=== PATIENT | female | born 1990 | race Caucasian/White ===

== ENCOUNTER 2016-12-31 13:55 | Inpatient (IN) | payer OTHER ==
[~2016-12-31] VITALS: Ht 182.9 cm; Wt 103.0 kg
--- NOTE | 2016-12-31 13:57 | NUR ---
PT ARRIVED VIA AMB FROM HOME FOR WITNESSED CARDIOPULMONARY ARREST BY FATHER IMMEDIATELY POST SEIZURE EPISODE. PT HAS NO HX OF SEIZURES. COMPRESSIONS WERE STARTED IMMED BY FATHER AND CONTINUED BY EMS UPON THEIR ARRIVAL. PT ARRIVED TO ED WITH AIRWAY SUPPORTED BY BVM. PT WAS TRANSFERRED TO ED [facility] AND BVM CONT BY RT BENITSE.
--- NOTE | 2016-12-31 14:03 | NUR ---
1L LESLI AKERS INFUSING TO L LEG I.O. BY John VALENCIA RN
--- NOTE | 2016-12-31 14:06 | NUR ---
LEVOPHED INFUSION BEGAN AT 2MCG/MIN
--- NOTE | 2016-12-31 14:13 | NUR ---
TITRATED NOREPI TO 4MCG/MIN
[2016-12-31 14:15] VITALS: BP 85/45
[2016-12-31 14:20] LABS: BASOPHIL % 0.3 % (0-2); PLATELET COUNT 279 x10^3mcL (130-400); RED CELL DISTRIBUTION WIDTH 14.1 % (11.5-14.5)
[2016-12-31 14:40] LABS: CALCIUM 7.9 mg/dL (8.5-10.1); CARBON DIOXIDE 19.5 mmol/L (21-32); CREATININE SERUM 1.2 mg/dL (0.6-1.0); POTASSIUM SERUM 3.9 mmol/L (3.5-5.1)
--- NOTE | 2016-12-31 14:43 | NUR ---
DIPRIVAN STARTED AT 5MCG/KG/MIN FOR SEDATION
[2016-12-31 14:45] LABS: BILIRUBIN TOTAL 0.5 mg/dL (0.20-1.00); TOTAL PROTEIN, SERUM 6.8 g/dL (6.4-8.2)
[2016-12-31 15:03] LABS: T3 TOTAL 1.2 ng/mL
[2016-12-31 15:10] LABS: PHOSPHOROUS 6.9 mg/dL (2.5-4.9)
[2016-12-31 15:12] LABS: CHOLESTEROL/HDL RATIO 4.2
--- NOTE | 2016-12-31 15:20 | NUR ---
DIPRIVAN INCR TO 20MCG/KG. PT MOVING ALL EXTREMITIES AND ATTEMPTED TO REACH FOR ET TUBE. PT SUCTIONED-CLEAR MUCUS NOTED TO SUCTION TUBING CANISTER.
--- NOTE | 2016-12-31 15:21 | NUR ---
PT HAD BM X 2 WITH URINARY INCONTINENCE. PT CLEANED AND NEW LINENS GIVEN.
--- NOTE | 2016-12-31 15:24 | NUR ---
RT KAMARI AT BEDSIDE FOR VENTILATION MONITOR ALARMING "HIGH PRESSURE." PT CURRENTLY STILL ON DIPRIVAN 20MCG/KG AND STILL MOVING ALL EXTREMITIES
[2016-12-31 15:39] LABS: UA SPECIFIC GRAVITY 1.025 (1.005-1.035); microscopic required? YES; urine erythrocyte 2+ (NEGATIVE)
[2016-12-31 15:41] LABS: FREE T4 1.06 ng/dL (0.76-1.46); FREE THYROXINE INDEX 3.7 ug/dL (1.4-4.5); T4(THYROXINE) 10.3 ug/dL (4.7-13.3)
--- NOTE | 2016-12-31 15:43 | NUR ---
INFORMATION SYSTEMS SPECIALIST PATRICIA AT BEDSIDE. LEVOPHED STARTED BY PATRICIA ROSARIO AT 4MCG/MIN FOR LOW BP. DIPRIVAN NOW AT 35MCG/KG
[2016-12-31 15:47] LABS: AMPHETAMINE QUAL UR NONE DETECTED (NEG <=1000)
--- NOTE | 2016-12-31 15:47 | NUR ---
PATRICIA STAVE LOG CUT OFF SAW OPERATOR RECEIVED REPORT
--- NOTE | 2016-12-31 16:17 | NUR ---
PT ARRIVED ON UNIT FROM ED ON GURNEY ACCOMPANIED BY RN AND RT. PT IS SEDATED ON PROPOFOL @ 35 MCG/KG/MIN TO MRSS = 5. PT WITHDRAWS TO PAINFUL STIMULI. DOES NOT FOLLOW COMMANDS. GAG REFLEX NOTED. PUPILS ARE 4MM BRISK BILATERALLY. SIZE 7.5 ETT INTACT AND SECURED, 24 @ LL. VCV/AC: RATE 14, TV 500, PEEP 5, FIO2 100%. PT NOTED TO BE HAVING LABORED BREATHING, RR = 36. LUNG SOUNDS ARE COARSE THROUGHOUT. HEART SOUNDS DISTANT. SINUS TACH, HR = 166. PT ON LEVOPHED @ 4 MCG/MIN. PULSES ARE THREADY X4, DOPPLER REQUIRED TO ASSESS. SKIN IS COOL AND PALE. CAP REFILL > 3 S. L HAND IV INTACT AND PATENT. LLE IO INTACT, PATENT. SKIN IS INTACT. ABD IS FIRM AND DISTENDED, BOWEL SOUNDS HYPOACTIVE X4Q. BRYANT INTACT AND DRAINING VIA GRAVITY, POOR OUTPUT. BED LOW, SIDE RAILS UP X3, CALL LIGHT IN REACH. WILL CONTINUE TO MONITOR.
[2016-12-31 16:30] VITALS: BP 103/64
--- NOTE | 2016-12-31 16:30 | NUR ---
VENTILATOR NOTED TO CONTINUOUSLY ALARM HIGH PRESSURE LIMITS, SPOKE WITH DR. KLEIN REGARDING VENTILATOR SETTINGS, NEW ORDER PRESSURE CONTROL 18 CMH2O, RR 14 BREATHS/MIN, PEEP +10, AND FIO2 100%.
--- NOTE | 2016-12-31 17:00 | NUR ---
TITRATED LEVOPHED TO 6 MCG/MIN, BP = 66/43 (57).
--- NOTE | 2016-12-31 17:00 | NUR ---
22 GA IV PLACED TO L AC. IV PATENT, BLOOD RETURN PRESENT, DRESSING CDI.
--- NOTE | 2016-12-31 17:05 | NUR ---
L HAND IV D/C'D D/T INFILTRATING.
--- NOTE | 2016-12-31 17:07 | NUR ---
AMIODARONE LOADING BOLUS STARTED AT THIS TIME.
--- NOTE | 2016-12-31 17:15 | NUR ---
TITRATED LEVOPHED TO 8 MCG/MIN, BP = 78/46(54).
--- NOTE | 2016-12-31 17:18 | NUR ---
AMIODARONE DRIP STARTED @ 1 MG/MIN AT THIS TIME.
--- NOTE | 2016-12-31 17:20 | NUR ---
AT BEDSIDE SPEAKING TO PT MOM AND DAD. OBTAINED CONSENT FOR CENTRAL LINE INSERTION AT THIS TIME, BOTH VERBALIZE UNDERSTANDING RISKS AND BENEFITS. SEE CHART FOR DETAILS.
--- NOTE | 2016-12-31 17:30 | NUR ---
DR KLEIN AND US TECH AT BEDSIDE TO PERFORM CENTRAL LINE PLACEMENT, TIME OUT DONE.
--- NOTE | 2016-12-31 17:30 | NUR ---
TITRATED LEVOPHED TO 10 MCG/MIN, BP =83/32(50).
--- NOTE | 2016-12-31 17:36 | NUR ---
REPORT GIVEN TO EVGENY RN. ALL CARE ENDORSED.
[2016-12-31 17:55] VITALS: BP 115/79
--- NOTE | 2016-12-31 17:59 | NUR ---
NIBP 69/52 MAP 56 HR 133, LEVOPHED TITRATED TO 16 MCG/MIN. WILL CONT TO MONITOR AND TITRATE NEEDED.
[2016-12-31 18:00] VITALS: BP 69/52
--- NOTE | 2016-12-31 18:05 | NUR ---
NIBP 66/44 MAP 53 HR 133, LEVOPHED TITRATED TO 20 MCG/MIN. IVF NS TITRATED TO 150 ML/HR PER DR. KLEIN ORDERS. WILL CONT TO MONITOR AND TITRATE NEEDED.
--- NOTE | 2016-12-31 18:15 | NUR ---
NIBP 66/40 MAP 50 LEVOPHED TITRATED TO 25 MCG/MIN. WILL CONT TO MONITOR
--- NOTE | 2016-12-31 18:30 | NUR ---
ALVARO TITRATED TO 100 MCG/MIN, BP = 73/50(56).
--- NOTE | 2016-12-31 18:40 | NUR ---
AVLARO INITIATED @ 50 MCG/MIN. BP = 71/51 MAP = 57.
--- NOTE | 2016-12-31 18:45 | NUR ---
ALVARO TITRATED TO 150 MCG/MIN, BP = 63/49(56).
--- NOTE | 2016-12-31 18:45 | NUR ---
ALVARO TITRATED TO 100 MCG/MIN, BP = 73/50(56).
--- NOTE | 2016-12-31 18:55 | NUR ---
ALVARO TITRATED TO 150 MCG/MIN, BP = 63/49(56).
--- NOTE | 2016-12-31 19:05 | NUR ---
ALVARO TITRATED TO 200 MCG/MIN, MAP < 60.
--- NOTE | 2016-12-31 19:06 | NUR ---
REPORT GIVEN TO JAZ ROSARIO. ALL CARE ENDORSED.
--- NOTE | 2016-12-31 19:06 | NUR ---
PT IS INTUBATED AND SEDATED ON MORPHINE @ 1 MG/HR AND VERSED @ 1 MG/HR TO MRSS = 5. PT WITHDRAWS TO PAINFUL STIMULI. UNABLE TO FOLLOW COMMANDS AT THIS TIME. SIZE 7.5 ETT INTACT AND SECURED, 24 @ LL. PCV: RATE 14, IP 18, PEEP 10, FIO2 100%. PT IS BREATHING E/U. LUNG SOUNDS ARE COARSE THROUGHOUT. R IJ CVC INTACT AND SECURED, DRESSING CDI. L AC IV INTACT, PATENT, DRESSING CDI. LEVOPHED INFUSING @ 30 MCG/MIN, NEOSYNEPHRINE @ 200 MCG/MIN, AMIODARONE @ 1 MG/MIN. 1L NS BOLUS INFUSING AT THIS TIME. LLE I/O INTACT AND SECURED, PATENT, SITE IS CLEAN AND DRY. NO EDEMA NOTED AT THIS TIME. BRYANT INTACT AND DRAINING VIA GRAVITY, POOR OUTPUT. NO S/SX OF PAIN AT THIS TIME. BED LOW, SIDE RAILS UP X3, CALL LIGHT IN REACH. WILL CONTINUE TO MONITOR.
--- NOTE | 2016-12-31 19:30 | NUR ---
PT IS INTUBATED AND SEDATED. MORPHINE DRIP 1 MG/HR AND VERSED DRIP 1 MG/HR. PT IN UNRESPONSIVE, UNABLE TO FOLLOW COMMANDS, UNABLE TO MAKE NEEDS KNOWN. PUPILS OD 3/SLUGGISH, OS 4/SLUGGISH. OGT IN PLACE AND SECURED. LAC IV [address] AND PATENT. RIJ IV IN PLACE AND SECURED, DRESSING CDI, ALL PORTS PATENT AND INFUSING WELL. NS AT 150 ML/HR. AMIODARONE DRIP 1 MG/MIN. LEVOPHED DRIP 30 MCG/MIN. NEOSYNEPHERINE DRIP 300 MCG/MIN. ETT IN PLACE AND SECURED, ATTACHED TO VENT, 7.5 ETT/24 LL. VENT SETTINGS: PC MODE, FIO2 100%, RATE 18, PRESSURE 18, PEEP 10. RHONCHI HEARD TO BILAT UPPER LOBES AND DIMINISHED LUNG SOUNDS TO BILAT BASES OF LOBES. NO SECRETIONS NOTED UPON SUCTIONING, NO GAG REFLEX NOTED. CHEST RISE IS EQUAL AND SYMMETRICAL. ABD IS ROUND AND SOFT. HYPOACTIVE BOWEL SOUNDS X4 QUADRANTS. BRYANT CATHETER IN PLACE, CLEAN AND PATENT, DRAINING YELLOW URINE. SKIN IS COOL AND DRY. NO SKIN TEARS NOTED. WEAK PULSES TO BUE AND BLE. CAP REFILL >3. BP 71/48, MAP 54, HR 127, O2 97%, TEMP 98.9. NO S/S OF PAIN NOTED. WILL CONTINUE TO MONITOR FOR ANY ACUTE CHANGES.
--- NOTE | 2016-12-31 19:45 | NUR ---
DR MORGAN, DR KLEIN AT BEDSIDE FOR ARTERIAL LINE INSERTION.
--- NOTE | 2016-12-31 20:00 | NUR ---
ARTERIAL LINE SUCCESSFUL. HR DROPPED TO 56 AND PT DESATTNG- 42%. DR MORGAN MADE AWARE. BP 80/62, MAP 69. PT IS BEING MANUALLY BAGGED.
--- NOTE | 2016-12-31 20:15 | NUR ---
FAMILY AT BEDSIDE WITH DR MORGAN AND DR KLEIN. CODE STATUS DISCUSSED, FAMILY WISHES TO KEEP PT FULL CODE. WILL CONTINUE TO MONITOR FOR ANY ACUTE CHANGES.
--- NOTE | 2016-12-31 20:20 | NUR ---
HYPOTHERMIA PROTOCOL D/C AT THIS TIME PER DR MORGAN. SEDATION TURNED OFF AT THIS TIME WELL. WILL CONTINUE TO MONITOR FOR ANY ACUTE CHANGES.
--- NOTE | 2016-12-31 20:32 | NUR ---
ETT REATTACHED TO VENT. VENT SETTINGS: PC MODE, RATE 18, PRESSURE 18, FIO2 100%, PEEP 10. WILL CONTINUE TO MONITOR FOR ANY ACUTE CHANGES.
[2016-12-31] MEDS ORDERED: DEPL PO (21:15)
[2016-12-31] MEDS ORDERED: [UNRECOGNIZED DRUG - CODE] PO (21:15)
--- NOTE | 2016-12-31 21:26 | NUR ---
ART LINE 91/41 (57). [facility] INITIATED AT 0.01 UNITS/MIN PER ORDER. WILL CONTINUE TO MONITOR FOR ANY ACUTE CHANGES.
[2016-12-31 21:40] VITALS: BP 64/51
[2016-12-31 22:23] LABS: RED CELL DISTRIBUTION WIDTH 14.3 % (11.5-14.5)
[2016-12-31 22:29] LABS: PLATELET COUNT 119 x10^3mcL (130-400)
[2016-12-31 22:32] LABS: CALCIUM 6.5 mg/dL (8.5-10.1); CARBON DIOXIDE 13.3 mmol/L (21-32); CREATININE SERUM 1.9 mg/dL (0.6-1.0)
--- NOTE | 2016-12-31 22:34 | NUR ---
PLACED PHONE CALL TO [facility]. SPOKE WITH EFRA. [facility] REFERENCE NUMBER: [id number]. INFORMED THAT A [facility] REPERSENTATIVE WOULD MAKE A VISIT TO HOSP OVERNIGHT OR IN THE AM.
[2016-12-31 22:42] LABS: BAND NEUTROPHIL 10 % (0-10); SEGMENTED NEUTROPHILS 80 % (37-75); rbc morphology (normal/abnorm) NORMAL (NORMAL)
[2016-12-31 22:43] LABS: PLATELET MORPHOLOGY PLATELETS DECREASED
--- NOTE | 2016-12-31 23:31 | NUR ---
PT IS MOVING LEGS AND IS RAISING ARMS. SEDATION TURNED ON AT THIS TIME. MORPHINE 1 MG/HR AND VERSED 1 MG/HR. WILL CONTINUE TO MONITOR FOR ANY ACUTE CHANGES.
[2016-12-31 23:38] VITALS: BP 111/58
--- NOTE | 2016-12-31 23:40 | NUR ---
ART LINE 111/58 (75). [facility] TURNED OFF AT THIS TIME. WILL CONTINUE TO MONITOR FOR ANY ACUTE CHANGES.
[2017-01-01] VITALS (17 sets, daily range): BP systolic 95–125; BP diastolic 48–70
--- NOTE | 2017-01-01 01:33 | NUR ---
PT IS LYING IN BED WITH FAMILY MEMBERS AT BEDSIDE. ART LINE BP 117/69, MAP 84, HR 117, O2 97%, TEMP 98.2. NO S/S OF PAIN NOTED. WILL CONTINUE TO MONITOR FOR ANY ACUTE CHANGES.
--- NOTE | 2017-01-01 04:06 | NUR ---
CALLED [facility] TO OBTAIN HEAD CT OF PT. [facility] STATED THEY WOULD CALL ME BACK WITH AN ESTIMATED TIME THE CT CAN BE TAKEN.
--- NOTE | 2017-01-01 05:05 | NUR ---
PT TRANSFERRED TO CT ROOM.
[2017-01-01 05:16] LABS: BASOPHIL % 0.2 % (0-2); RED CELL DISTRIBUTION WIDTH 14.3 % (11.5-14.5)
[2017-01-01 05:20] LABS: PLATELET COUNT 111 x10^3mcL (130-400)
--- NOTE | 2017-01-01 05:28 | NUR ---
PT RETURNED FROM CT. NO S/S OF PAIN NOTED. WILL CONTINUE TO MONITOR FOR ANY ACUTE CHANGES.
[2017-01-01 05:29] LABS: CALCIUM 6.3 mg/dL (8.5-10.1); CARBON DIOXIDE 18.3 mmol/L (21-32); CREATININE SERUM 2.1 mg/dL (0.6-1.0); PHOSPHOROUS 7.3 mg/dL (2.5-4.9); POTASSIUM SERUM 3.7 mmol/L (3.5-5.1)
--- NOTE | 2017-01-01 05:55 | NUR ---
PT GIVEN FULL BED BATH. NEW LINENS PROVIDED. NO BM NOTED. PT REPOSITONED. WILL CONTINUE TO MONITOR FOR ANY ACUTE CHANGES.
--- NOTE | 2017-01-01 06:21 | NUR ---
JULIO CESAR STACY AT BEDSIDE. FIO2 CHANGED TO 80%. WILL CONTINUE TO MONITOR FOR ANY ACUTE CHANGES.
--- NOTE | 2017-01-01 06:53 | NUR ---
SPOKE TO DR MORGAN VIA PHONE CALL. UPDATES PROVIDED. DR MORGAN TO SEE PT. WILL CONTINUE TO MONITOR FOR ANY ACUTE CHANGES.
--- NOTE | 2017-01-01 07:17 | NUR ---
REPORT GIVEN TO PATRICIA ROSARIO. UPDATES PROVIDED. ENDORSED PT CARE.
--- NOTE | 2017-01-01 07:30 | NUR ---
PT IS INTUBATED AND SEDATED ON MORPHINE @ 2MG/HR AND VERSED @ 2MG/HR TO MRSS = 4. PT RESPONDS TO TACTILE STIMULI. PT DOES NOT FOLLOW COMMANDS AT THIS TIME, BUT WAS NOTED TO ANSWER QUESTIONS DURING THE NIGHT. PUPILS ARE 2MM SLUGGISH BILATERALLY. SIZE 7.5 ETT INTACT AND SECURED, 26 @ LL. SIZE 7.5 ETT INTACT AND SECURED, 26 @ LL. PCV: RATE 14, IP 10, PEEP 18, FIO2 80%. PT IS BREATHING E/U. LUNG SOUNDS ARE COARSE THROUGHOUT. NO SECRETIONS FROM ETT AT THIS TIME. HEART SOUNDS DISTANT. SINUS TACH, HR = 122. LEVOPHED INFUSING @ 30 MCG/MIN, NEOSYNEPHRINE @ 150 MCG/MIN, AMIODARONE @ 0.5 MG/MIN. R IJ CVC INTACT, PORTS PATENT, DRESSING CDI. NS INFUSING @ 50 CC/HR. PULSES ARE WEAK X4. CAP REFILL < 3 S. SKIN IS WARM AND PALE. TRACE EDEMA NOTED TO BUE AND BLE. ABD IS SOFT AND ROUNDED. BOWEL SOUNDS HYPOACTIVE X4Q. BRYANT INTACT AND DRAINING VIA GRAVITY. URINE IS RUDY, POOR OUTPUT. NO S/SX OF PAIN AT THIS TIME. HOB ELEVATED, BED LOW, SIDE RAILS UP X3, CALL LIGHT IN REACH. WILL CONTINUE TO MONITOR.
--- NOTE | 2017-01-01 08:20 | NUR ---
TITRATED FIO2 TO 70%.
--- NOTE | 2017-01-01 10:05 | NUR ---
TITRATED FIO2 TO 60%.
--- NOTE | 2017-01-01 11:15 | NUR ---
DR ANNE AT BEDSIDE TO ASSESS PT. DR ANNE DISCUSSED PT'S PROGNOSIS, ECHO CARDIOGRAM RESULT, AND POC WITH PT'S MOTHER, ARA. QUESTIONS AND CONCERNS ADDRESSED.
--- NOTE | 2017-01-01 11:26 | NUR ---
DR. GONZÁLES, RESIDENTS, INTEGRATION ASSISTANT AND PRIMARY RN AT BEDSIDE FOR MORNING ROUNDS. PLAN OF CARE DISCUSSED WITH PT'S MOTHER, WILL CONT TO MONITOR.
--- NOTE | 2017-01-01 11:55 | NUR ---
TITRATED FIO2 TO 50%.
--- NOTE | 2017-01-01 14:55 | NUR ---
DR. MORGAN AT BED SIDE, PT PLACED ON VOLUME CONTROL WITH PREVIOUS ORDERED SETTINGS OF AC 14, VT 500 MLs, PEEP +5 CMH2O, AND FIO2 50%. ABG TO FOLLOW POST VENTILATOR SETTINGS CHANGES.
--- NOTE | 2017-01-01 15:02 | NUR ---
DR MORGAN AT BEDSIDE TO ASSESS PT. DR MORGAN DISCUSSED PT'S STATUS WITH PT'S FAMILY AT BEDSIDE AND POC AT [facility] TIME. ORDERS RECEIVED, SEE EMAR.
--- NOTE | 2017-01-01 15:12 | NUR ---
ECHO COMPLETED AT 9:00 AM
--- NOTE | 2017-01-01 16:05 | NUR ---
TITRATED FIO2 TO 40%.
--- NOTE | 2017-01-01 17:45 | NUR ---
TITRATED FIO2 TO 30%.
--- NOTE | 2017-01-01 19:15 | NUR ---
REPORT RECEIVED FROM PATRICIA ROSARIO TO ASSUME CARE. PT LYINING IN BED WITH HOB ELEVATED. ETT/OGT PRESENT AND SECURE. PT VENTILATED ON AC/VC MODE, Vt 500, FIO2 30%, RATE 14 AND PEEP 5. RIJ PRESENT/SECURE AND INFUSING MORPHINE 2 MG/HR, VERSED 2 MG/HR, AMIODARONE 0.5 MG/MIN, LEVOPHED 30 MCG/MIN, NEOSYNEPHRINE 125 MCG/MIN AND NS 50 ML/HR. RIGHT FEMORAL LINE PRESENT/SECURE. BRYANT CATHETER DRAINING TO GRAVITY. CALL LIGHT WITHIN REACH. MOTHER AT BEDSIDE. WILL PERFORM ASSESMENT SHORTLY. WILL CONTINUE TO MONITOR.
--- NOTE | 2017-01-01 19:24 | NUR ---
PT IS INTUBATED AND SEDATED ON VERSED @ 2 MG/HR AND MORPHINE @ 2 MG/HR. ETT AND OGT INTACT AND SECURED. R IJ CVC INTACT, PORTS PATENT, DRESSING CDI. ETT TO VENT, VCV/AC: RATE 14, TV 500, PEEP 5, FIO2 30%. PT IS BREATHING E/U. LEVO @ 30 MCG/MIN, ALVARO @ 125 MCG/MIN, AMIODARONE @ 0.5MG/HR, NS @ 50 CC/HR. BRYANT INTACT AND DRAINING TO GRAVITY. NO DISTRESS NOTED.
--- NOTE | 2017-01-01 19:25 | NUR ---
REPORT GIVEN TO NATALIE ROSARIO. ALL CARE ENDORSED.
--- NOTE | 2017-01-01 20:36 | NUR ---
Dr. Nuno, made aware of platelets trending down, Heparin SQ not given.
[2017-01-02] VITALS (17 sets, daily range): BP systolic 92–131; BP diastolic 43–64; Ht 182.9 cm; Wt 103.0 kg
--- NOTE | 2017-01-02 00:25 | NUR ---
NEOSYNEPHRINE TITRATED TO 100 MCG/MIN. ARTERIAL BP 125/59, MAP 78. WILL CONTINUE TO MONITOR.
--- NOTE | 2017-01-02 02:10 | NUR ---
NEOSYNEPHRINE TITRATED TO 75 MCG/MIN. BP 120/57, MAP 74. WILL CONTINUE TO MONITOR.
--- NOTE | 2017-01-02 03:43 | NUR ---
CARMEN RT AT BEDSIDE TO ADMINSTER BREATHING TX. WILL CONTINUE TO MONITOR.
--- NOTE | 2017-01-02 04:03 | NUR ---
TITRATED VERSED 3 MG/HR. VENT HIGH PRESSURE AND LOW VOLUME, PT ALSO MOVING ARMS AROUND. WILL CONTINUE TO MONITOR.
--- NOTE | 2017-01-02 04:20 | NUR ---
NEOSYNEPHRINE TITRATED TO 100 MCG/MIN, MAP 56. WILL CONTINUE TO MONITOR.
[2017-01-02 05:41] LABS: BASOPHIL % 0.1 % (0-2); RED CELL DISTRIBUTION WIDTH 13.9 % (11.5-14.5)
[2017-01-02 05:43] LABS: PLATELET COUNT 108 x10^3mcL (130-400)
--- NOTE | 2017-01-02 05:49 | NUR ---
RECEIVED CALL FROM [facility] . PAGE GATED SENT TO DR DURBIN TO ADVISE.
[2017-01-02 06:06] LABS: ALBUMIN 2.1 g/dL (3.4-5.0); CALCIUM 6.2 mg/dL (8.5-10.1); CARBON DIOXIDE 22.9 mmol/L (21-32); CREATININE SERUM 3.4 mg/dL (0.6-1.0); POTASSIUM SERUM 3.9 mmol/L (3.5-5.1)
--- NOTE | 2017-01-02 06:15 | NUR ---
TITRATED NEOSYNEPHRINE 75 MCG/MIN. MAP 71 WILL CONTINUE TO MONITOR.
--- NOTE | 2017-01-02 06:25 | NUR ---
NEOSYNEPHRINE TITRATED TO 100 MCG/MIN, MAP 49. WILL CONTINUE TO MONITOR.
--- NOTE | 2017-01-02 06:59 | NUR ---
DR CRAWFORD AT BEDSIDE TO ASSESS PT AND DISCUSS WITH FAMILY PLAN OF CARE.
--- NOTE | 2017-01-02 07:00 | NUR ---
REPORT RECEIVED FROM [facility] SHIFT MARELNE ESTRADA. UPDATES PROVIDED. ALL QUESTIONS ANSWERED ALL CONCERNS ADDRESSED. WILL ASSUME CARE AND ASSESS SHORTLY.
--- NOTE | 2017-01-02 07:15 | NUR ---
PATIENT ASSESSED AT THIS TIME. PATIENT RESTING CALMLY IN BED. PATIENT HAS A-LINE IN PLACE TO RIGHT FEM. RIJ IN PLACE INFUSING NS @ 50 ML/HR. AMIODARONE AT 0.5 MG/MIN, LEVOPHED AT 28 MCG/MIN, ALVARO AT 100 MCG/MIN, MORPHINE AT 2 MG/HR AND VERSED AT 3 MG/HR. RSS OF 5 NOTED. PATIENT HAS NO RESTRAINTS IN PLACE. [employer]CS: DOES NOT OPEN EYES, RESPONDS TO TACTILE STIMULI, NONVERBAL. PUPILS ARE 3 MM AND SLUGGISH BILATERALLY. SEE SHIFT ASSESSMENT FOR FURTHER DETAILS.
--- NOTE | 2017-01-02 07:16 | NUR ---
REPORT GIVEN TO JAZ ROSARIO. ALL QUESTIONS AND CONCERNS ADDRESSED.
--- NOTE | 2017-01-02 07:29 | NUR ---
LEVOPHED TITRATED DOWN TO 26 MCG/MIN AT THIS TIME DUE TO BP MAP IN THE 80'S.
--- NOTE | 2017-01-02 07:53 | NUR ---
MORPHINE DECREASED TO 1 MG/HR AND VERSED DECREASED TO 2 MG/HR DUE TO PATIENT RSS OF 5 NOTED. LEVOPHED DECREASED TO 24 MCG/MIN DUE TO MAP IN THE 80'S.
--- NOTE | 2017-01-02 08:01 | NUR ---
LEVOPHED TITRATED DOWN TO 18 MCG/MIN DUE TO ARTERIAL BP 140/80'S.
--- NOTE | 2017-01-02 09:15 | NUR ---
DR. GONZÁLES ROUNDING WITH RESIDENTS AT THIS TIME. UPDATES PROVIDED, RYANN TIDWELL TO BE STARTED.
--- NOTE | 2017-01-02 09:57 | NUR ---
DR. BARRIENTOS BEDSIDE WITH PATIENT FOR RYANN CATH PLACEMENT. ULTRASOUND BEDSIDE.
--- NOTE | 2017-01-02 09:58 | NUR ---
LEVOPHED TITRATED DOWN TO 26 MCG/MIN DUE TO BP WITH MAP IN THE 80'S
--- NOTE | 2017-01-02 10:15 | NUR ---
PATIENT WITH 02 SAT 90%. TITRATED FIO2 ON VENT TO 100% AT THIS TIME. PRIMARY RN JAZ MADE AWARE. TELEPHONED LYSSA STACY AND ADVISED OF VENT CHANGE.
--- NOTE | 2017-01-02 11:42 | NUR ---
CVP MONITORING INITIATED AT THIS TIME. CVP IS 18. TUBE FEEDING STARTED. AIR AUSCULTATED OVER GASTRIC REGION TO VERIFY PLACMENT. FEEDING START AT INITIAL RATE OF 10 ML/HR WITH 50 ML FWF Q4 HOURS.
--- NOTE | 2017-01-02 12:00 | NUR ---
LEVOPHED DECREASED TO 14 MCG/MIN AT THIS TIME.
--- NOTE | 2017-01-02 12:16 | NUR ---
RT BEDSIDE FOR BREATHING TREATMENT,
--- NOTE | 2017-01-02 12:30 | NUR ---
DAILY SEDATION VACATION STARTED AT THIS TIME. MORPHINE AND VERSED TURNED OFF.
--- NOTE | 2017-01-02 12:50 | NUR ---
HD RN JOVANY NOTIFIED OF HD ORDER. PRIMARY RN JAZ DE LA CRUZ.
--- NOTE | 2017-01-02 12:56 | NUR ---
LEVOPHED TITRATED DOWN TO 12 MCG/MIN AT THIS TIME. MAP IN THE 70-80'S.
--- NOTE | 2017-01-02 12:57 | NUR ---
DR. JERONIMO BEDSIDE. UPDATES PROVIDED. HD TO BE DONE TODAY AND POSSIBLY TOMORROW.
--- NOTE | 2017-01-02 14:39 | NUR ---
AMIODARONE DC'D AT THIS TIME PER DR MATTHEWS ORDER. PATIENT IN NSR FOR 2 DAYS.
--- NOTE | 2017-01-02 14:52 | NUR ---
Initial Nutrition Assessment Dx: status post full arrest PMHx: Karyotype 47XXX ,Partial Absence of Corpus Collosum ,Scoliosis Osteoporosis Cardiac arrythmias and Congenital Pyloric stenosis PSHx: Left Arm Surgery , Pyloric Stenosis surgery Labs: (01/02) Na:132L, B, BUN:26H, Cr:3.4H, Ca:6.2L, Phos:6H, Ammonia:69H, WBC:20.1H, H/H:11.1/33L (12/31) Lactic acid:7H, Meds:Cephulac, Colace, Levophed, Morphine, León-synephrine, Pepcid, Sodium Bicarbonate, Versed, Zofran Current Nutrition Support: Peptamen at 10ml/hr. FWF:50ml q4hr Ht: 72in, 6ft Wt: 253#, 115kg BMI:34.4kg/m2 (obesity classI) IBW: 160#,73kg %IBW: 158% adj bw: 183#,83kg UBW:unable to obtain Age:26 y.o female Food Allergies:unable to obtain Skin:intact Rafa:11 Edema:+1 to SHELLY GI: hypoactive bowel sounds. Last BM Pt was admitted with Cardiac Arrest secondary to Seizure disorder ,Severe Hypotension, uncontrolled, 90/42, MAP 57,Hepatic Encephalopathy, Ammonia 137 ,Hematuria likely 2/2 end organ damage,Hyperphosphatemia, 6.9 and VMN w/ Proteinuria, per H&P. Per progress note 01/02, pt continues with Amiodarone drip for heart arrhythmia, HR in 110s. Pt had a fever of 101.4 overnight; continue IV Abx, WBC down from 30 yesterday to 20 today. Pt intubated on ventilator, FiO2 30%, PEEP 5. Sedated on versed @ 3mg/hr. León at 100mcg/min, Levophed @ 30. Per bed huddle this morning, pt had a momo catheter placed and will have Hemodialysis today and will possibly transfer to [place] afterwards. During visit, pt's family was speaking to ICU director. Spoke to RN, who reports case management is working on transfer to [place]. Problem with: N: No V:No D:No C:No Recent wt change:unable to obtain %wt change:N/A Vitamin/Supplement use: unable to obtain Special diet at home: unable to obtain Physical activity: unable to obtain Education: unable to provide due to pt intubated and familu with ICU director at time of RD visit. Estimated Nutritional Needs Based on adjusted body weight 83 kg Ventilator in L/min: 6.72 Temperature: 37.8C Map:64 Energy: 2231kcal/d (PSU 2003B for vent support) Protein:65-100 g/d (0.8-1.2g/kg for vent and elevated ammonia and Creatinine using adj bw) [id number]/day +output or per doctor Nutrition Diagnosis 1. Inadequate enteral nutrition support related to low TF rate as evidenced by pt only meeting 13% caloric needs and 28% protein needs. Intervention 1. When medically feasible, recommend TF of Novasource Renal at 20ml/hr, increase 10ml q6hr to goal rate of 45ml/hr, free water flush 30ml q4hr. This provides 2160kcal, 98g protein and 954ml free water daily. This meets 97% caloric needs and 100% protein needs. Monitor/Evaluate Goal: TF intake at least 75% of estimated needs Monitor: TF intake/tolerance, Labs, GI function F/U in 2-3 days as high risk:01/04-
--- NOTE | 2017-01-02 14:57 | NUR ---
1. When medically feasible, recommend TF of Novasource Renal at 20ml/hr, increase 10ml q6hr to goal rate of 45ml/hr, free water flush 30ml q4hr. This provides 2160kcal, 98g protein and 954ml free water daily. This meets 97% caloric needs and 100% protein needs.
--- NOTE | 2017-01-02 15:16 | NUR ---
PATIENT WITH O2 SAT 88% ON FIO2 30% ON VENT. FIO2 ON VENT TITRATED TO 50% BY ROMY. PRIMARY RN JAZ AND LYSSA STACY MADE AWARE.
--- NOTE | 2017-01-02 15:45 | NUR ---
levophed increased to 16 mcg/min at this time due to bp with map in the high 50's. automatic pattern edger karlie bedside.
--- NOTE | 2017-01-02 17:20 | NUR ---
LEVOPHED DECREASED TO 10 MCG/MIN AT THIS TIME.
--- NOTE | 2017-01-02 17:39 | NUR ---
LEVOPHED DECREASED TO 6 MCG/MIN AT THIS TIME DUE TO MAP IN THE 80'S.
--- NOTE | 2017-01-02 18:07 | NUR ---
LEVOPHED DECREASED TO 2 MCG/MIN AT THIS TIME DUE TO MAP IN THE 80'S.
--- NOTE | 2017-01-02 18:48 | NUR ---
LEVOPHED OFF AT THIS TIME. DIALYSIS COMPLETED.
--- NOTE | 2017-01-02 19:20 | NUR ---
RECEIVED REPORT FROM JAZ ROSARIO, UPDATES PROVIDED, WILL ASSUME TOTAL CARE.
--- NOTE | 2017-01-02 19:25 | NUR ---
PATIENT IS INTUBATED AND SEDATED ON MORPHINE @ 1MG/HR AND VERSED @ 1MG/HR. MRSS 4. PATIENT OPENS EYES TO TACTILE STIMULATION. PATIENT NONVERBAL DUE TO ETT. PATIENT DOES NOT FOLLOW COMMANDS. PUPILS 3MM AND SLUGGISH REACTION TO LIGHT BILATERALLY. PATIENT IS ORALLY INTUBATED. TRACHEA IS MIDLINE, NO SCLERAL EDEMA NOTED. OGT IN PLACE AIR AUSCULTATED OVER GASTRIC REGION TO VERIFY PLACEMENT. PATIENT BREATHING EVEN AND UNLABORED VIA VENT WITH SETTINGS: AC MODE, Vt 500, RATE 14, FIO2 50, PEEP 5. LUNG SOUNDS ARE RHONCHI BILATERALLY, DIMINISHED TO BLL. CHEST RISES SYMMETRICALLY. S1, S2 AUSCULTATED. CHEST WALL STABLE. NO S/S OF CP AT THIS TIME. PERIPHERAL PULSES ARE WEAK TO BUE/BLE. CAP REFILL IS >3 SEC TO BUE/BLE. TRACE EDEMA NOTED. NO RESTRAINTS IN PLACE. PATIENT HAS FULL PASSIVE ROM X 4 EXTREMITIES. SCD'S TO BLE. PATIENT IS ON PEPTAMEN AF AT 10 ML/HR WITH 50 ML FWF Q4 HOURS. NO N/V NOTED AT THIS TIME. PATIENT'S ABDOMEN IS ROUND, SLIGHTLY FIRM, AND NONTENDER TO PALPATION PER FLACC SCALE. ACTIVE BOWEL SOUNDS X 4Q. BM X 1, LARGE AMOUNT OF YELLOW LIQUID STOOL NOTED. PATIENT HAS BRYANT CATHETER IN PLACE THAT IS DRAINING SMALL AMOUNT OF YELLOW URINE TO GRAVITY. NO VAGINAL DISCHARGE OBSERVED. LABIAL EDEMA OBSERVED. SKIN IS WTT, DRY, AND INTACT. HOB ELEVATED, SIDE RAILS X3, ORAL CARE PROVIDED PER VAP PROTOCOL, BED IN LOWEST POSITION, CALL LIGHT WITHIN REACH. MOM AT BEDSIDE. WILL CONTINUE TO MONITOR.
--- NOTE | 2017-01-02 20:00 | NUR ---
PATIENT HAD A LARGE LOOSE BM, YELLOW IN COLOR. FULL BED BATH GIVEN, BRYANT CARE PROVIDED, GOWN CHANGED, LABIAL EDEMA OBSERVED, NO REDNESS/EXCORIATION, NOTED IN PERRY-AREA, Z-GUARD APPLIED.
[2017-01-03] VITALS (14 sets, daily range): BP systolic 91–139; BP diastolic 43–69
--- NOTE | 2017-01-03 03:00 | NUR ---
TUBE FEEDING CHANGED TO NOVASOURCE RENAL PER DIETARY ORDER @ 20ML/HR FWF 30ML Q4H. PATIENT TOLERATING PREVIOUS FEEDING. WILL CONTINUE TO MONITOR.
--- NOTE | 2017-01-03 05:30 | NUR ---
DR MATTHEWS AT BEDSIDE FOR ASSESSMENT, UPDATES PROVIDED, ALL QUESTIONS AND CONCERNS ADDRESSED, NO NEW ORDERS RECEIVED, WILL CONTINUE TO MONITOR.
[2017-01-03 05:38] LABS: CARBON DIOXIDE 28.2 mmol/L (21-32); CREATININE SERUM 3.7 mg/dL (0.6-1.0); MAGNESIUM 1.5 mg/dL (1.8-2.4); PHOSPHOROUS 3.4 mg/dL (2.5-4.9); POTASSIUM SERUM 3.2 mmol/L (3.5-5.1)
[2017-01-03 05:40] LABS: BASOPHIL % 0.2 % (0-2); RED CELL DISTRIBUTION WIDTH 14.3 % (11.5-14.5)
--- NOTE | 2017-01-03 05:45 | NUR ---
PATIENT HAD ANOTHER LARGE LOOSE BM, YELLOW IN COLOR. FULL BED BATH GIVEN, BRYANT CARE PROVIDED, GOWN AND LINENS CHANGED, LABIAL EDEMA OBSERVED, NO REDNESS/EXCORIATION, NOTED IN PERRY-AREA, Z-GUARD APPLIED.
[2017-01-03 05:46] LABS: PLATELET COUNT 84 x10^3mcL (130-400)
--- NOTE | 2017-01-03 07:15 | NUR ---
RECEIVED REPORT FROM ANGEL ROSARIO.
--- NOTE | 2017-01-03 07:15 | NUR ---
REPORT GIVEN TO PATRICIA ROSARIO, UPDATES PROVIDED, ALL QUESTIONS AND CONCERNS ADDRESSED.
--- NOTE | 2017-01-03 07:18 | NUR ---
ALVARO TITRATED TO 75 MCG/MIN, MAP = 91.
--- NOTE | 2017-01-03 08:00 | NUR ---
PT IS INTUBATED AND SEDATED ON VERSED @ 1 MG/HR AND MORPHINE @ 1 MG/HR TO MRSS = 4. PT RESPONDS TO VOICE AND TACTILE STIMULI. PUPILS OPEN SPONT. PERRLA, 2MM SLUGGISH. SIZE 7.5 ETT INTACT AND SECURED, 26 @ LL. OGT INTACT AND SECURED. R IJ CVC INTACT, PORTS PATENT, DRESSING CDI. L IJ RYANN INTACT, DRESSING CDI. ETT TO VENT, VCV/AC: RATE 14 TV 500, PEEP 5, FIO2 30%. PT IS BREATHING E/U. LUNG SOUNDS ARE FINE RHONCHI TO BUL, DIMINISHED TO BASES. SMALL AMOUNT OF CREAM COLOR SECRETIONS SUCTIONED FROM ETT. HEART SOUNDS DISTANT. NSR, HR = 83. R FEMORAL A-LINE INTACT, DRESSING CDI. NEOSYNEPHRINE INFUSING @ 75 MCG/MIN. AMIODARONE @ 0.5 MG/HR. ABD IS SOFT AND DISTENDED. BOWEL SOUNDS ACTIVE X4Q. BRYANT INTACT AND DRAINING VIA GRAVITY. URINE IS YELLOW, POOR OUTPUT. SKIN INTACT. NO S/SX OF PAIN AT THIS TIME. HOB ELEVATED, BED LOW, SIDE RAILS UP X3, CALL LIGHT IN REACH. WILL CONTINUE TO MONITOR.
--- NOTE | 2017-01-03 08:15 | NUR ---
ALVARO TITRATED TO 50 MCG/MIN, MAP = 75
--- NOTE | 2017-01-03 08:30 | NUR ---
PT HAD LARGE LOOSE BM. PT BATHED, LINENS CHANGED.
--- NOTE | 2017-01-03 10:00 | NUR ---
ALVARO TITRATED TO 100 MCG/MIN, MAP = 55.
--- NOTE | 2017-01-03 10:40 | NUR ---
HD NURSEALLEY, AT BEDSIDE TO BEGIN HD.
--- NOTE | 2017-01-03 11:30 | NUR ---
ALVARO TITRATED TO 125 MCG/MIN, MAP < 65.
--- NOTE | 2017-01-03 11:45 | NUR ---
ALVARO TITRATED TO 100 MCG/MIN, MAP = 76.
--- NOTE | 2017-01-03 12:00 | NUR ---
ALVARO TITRATED TO 75 MCG/MIN, MAP = 89.
--- NOTE | 2017-01-03 12:53 | NUR ---
SPOKE WITH CHRIS FROM [facility] AND PROVIDED PATIENT UPDATE WITH ALL QUESTIONS AND CONCERNS ADDRESSED. PAGED DR VALVERDE AND INFORMED HER CHRIS WOULD LIKE TO SPEAK WITH HER HOWEVER NO RETURN PHONE CALL RECEIVED. RETURNED TELEPHONE NUMBER PROVIDED BY CHRIS FROM [facility] . TELEPHONE CALL FORWARDED TO [facility] IN CASE MANAGEMENT FOR FURTHER INSTRUCTIONS.
--- NOTE | 2017-01-03 14:00 | NUR ---
NOVASOURCE RENAL ADVANCED TO 30 CC/HR.
--- NOTE | 2017-01-03 14:00 | NUR ---
DR CRAWFORD AT BEDSIDE TO ASSESS PT. DR CRAWFORD DISCUSSED PT STATUS AND TREATMENT PLAN WITH PT'S FAMILY AT BEDSIDE.
[2017-01-03 14:45] LABS: CALCIUM 7.7 mg/dL (8.5-10.1); CARBON DIOXIDE 32.6 mmol/L (21-32); CREATININE SERUM 2.3 mg/dL (0.6-1.0); MAGNESIUM 1.4 mg/dL (1.8-2.4); POTASSIUM SERUM 3.4 mmol/L (3.5-5.1)
--- NOTE | 2017-01-03 14:50 | NUR ---
SPOKE WITH ALEKSANDRA FROM [facility]. PATIENT TO BE TRANSFERRED TO [facility] [id number] AT 2000 TONIGHT. TRANSPORTATION ARRANGED BY [facility]. PATIENT TO BE TRANSFERRED WITH SOHEILA THOMAS. REPORT TO BE TELEPHONED TO ONCE PATIENT IS IN ROUTE TO [facility].
--- NOTE | 2017-01-03 14:58 | NUR ---
PT HAD LARGE LOOSE BM. PT BATHED, LINENS AND GOWN CHANGED.
--- NOTE | 2017-01-03 15:30 | NUR ---
ALVARO TITRATED TO 25 MCG/MIN, MAP = 75.
--- NOTE | 2017-01-03 15:45 | NUR ---
ALVARO TITRATED TO 50 MCG/MIN, MAP = 58.
--- NOTE | 2017-01-03 17:55 | NUR ---
R FEMORAL A-LINE REMOVED. PRESSURE APPLIED. PRESSURE DRESSING APPLIED. WILL CONTINUE TO MONITOR.
--- NOTE | 2017-01-03 18:11 | NUR ---
TOBI FROM [place] CALLED UNIT FOR PATIENT REPORT. REPORT GIVEN BY MYSELF WITH ALL QUESTIONS AND CONCERNS ADDRESSED.
[2017-01-03] MEDS ORDERED: XOP0.63 HHN (18:39)
[2017-01-03] MEDS ORDERED: [UNRECOGNIZED DRUG - CODE] IV (18:39)
[2017-01-03] MEDS ORDERED: LEVAQUIN750 MG IV (18:39)
[2017-01-03] MEDS ORDERED: FLA500 IV (18:39)
--- NOTE | 2017-01-03 18:45 | NUR ---
ALVARO TITRATED TO 25 MCG/MIN, MAP = 74.
[2017-01-03] MEDS ORDERED: COL100UDC PO (18:46)
[2017-01-03] MEDS ORDERED: VALLUD PO (18:46)
[2017-01-03] MEDS ORDERED: LAC15L PO (18:46)
[2017-01-03] MEDS ORDERED: PEP20I IV (18:46)
[2017-01-03] MEDS ORDERED: ZOFI IV (18:46)
[2017-01-03] MEDS ORDERED: AMIODARONE IV (18:46)
[2017-01-03] MEDS ORDERED: MORPHINE 110 MG/10 M IV (18:46)
[2017-01-03] MEDS ORDERED: [UNRECOGNIZED DRUG - CODE] IM (18:46)
[2017-01-03] MEDS ORDERED: [UNRECOGNIZED DRUG - CODE] IV (18:46)
--- NOTE | 2017-01-03 19:18 | NUR ---
ALVARO TITRATED TO 35, MAP = 63.
--- NOTE | 2017-01-03 19:19 | NUR ---
PT IS INTUBATED AND SEDATED ON MORPHINE @ 1 MG/HR AND VERSED @ 1 MG/HR TO MRSS = 4. ETT AND OGT INTACT AND SECURED. R IJ CVC INTACT, PORTS PATENT, DRESSING CHANGED AND CDI. L IJ RYANN INTACT, DRESSING CDI. ETT TO VENT, VCV/AC: RATE 14, TV 500, PEEP 5, FIO2 30%. PT IS BREATHING E/U. OGT INFUSING NOVASOURCE RENAL @ 30 CC/HR, TOLERATING WELL. NSR. ALVARO @ 35 MCG/MIN, AMIODARONE @ 0.5 MG/HR. BRYANT INTACT AND DRAINING VIA GRAVITY. URINE IS YELLOW, POOR OUTPUT. NO S/SX OF PAIN AT THIS TIME. NO DISTRESS NOTED. WILL ENDORSE ALL CARE TO ONCOMING RN.
--- NOTE | 2017-01-03 19:20 | NUR ---
REPORT RECEIVED FROM PATRICIA ROSARIO. ALL QUESTIONS AND CONCERNS ADDRESSED.
--- NOTE | 2017-01-03 22:30 | NUR ---
[facility] ARRIVED FOR PT. REPORT GIVEN TO ALESSANDRO ROSARIO AT BEDSIDE. DR CORONADO AND THEIR TEAM PRESENT. VITAL SIGNS FOLLOW; BP 126/66, MAP 85, HR 79, RATE 14 AND SPO2 100%. PT TRANSPORTED TO THEIR GURNEY WITHOUT INCIDENCE. PT TRANSFERED WITH AMIODARONE 0.5 MG/MIN, NEOSYNEPHRINE 35 MCG/MIN, VERSED 1 MG/HR AND MORPHINE 1 MG/HR DRIPS TO [facility]. TRANSFER PACKET PROVIDED TO DR. CORONADO. PT OFF UNIT AT 5.
--- NOTE | 2017-01-03 23:27 | NUR ---
REPORT GIVEN TO SANKET ROSARIO AT [facility] @ [phone]. ALL QUESTIONS AND CONCERNS ADDRESSED.
== END 2017-01-03 22:22 | disposition short-term general hospital (02) | DRG 208 ==
LOC: ED 13:55 → IC 14:12
PROVIDERS: Emergency Medicine; Family Medicine; ADMIT Family Medicine Sports Medicine
PROC: 5A1945Z Respiratory Ventilation, 24-96 Consecutive Hours (ICD-10-PCS; principal; 2016-12-31)
PROC: 0BH17EZ Insertion of Endotracheal Airway into Trachea, Via Natural or Artificial Opening (ICD-10-PCS; 2016-12-31)
PROC: 02HV33Z Insertion of Infusion Device into Superior Vena Cava, Percutaneous Approach (ICD-10-PCS; 2016-12-31)
PROC: B5181ZA Fluoroscopy of Superior Vena Cava using Low Osmolar Contrast, Guidance (ICD-10-PCS; 2016-12-31)
PROC: 04HK33Z Insertion of Infusion Device into Right Femoral Artery, Percutaneous Approach (ICD-10-PCS; 2017-01-01)
PROC: 05HN33Z Insertion of Infusion Device into Left Internal Jugular Vein, Percutaneous Approach (ICD-10-PCS; 2017-01-02)
PROC: B5141ZA Fluoroscopy of Left Jugular Veins using Low Osmolar Contrast, Guidance (ICD-10-PCS; 2017-01-02)
PROC: 5A1D70Z Performance of Urinary Filtration, Intermittent, Less than 6 Hours Per Day (ICD-10-PCS; 2017-01-02)
PROC: 5A1D70Z Performance of Urinary Filtration, Intermittent, Less than 6 Hours Per Day (ICD-10-PCS; 2017-01-03)
DX: J96.01 Acute respiratory failure with hypoxia (principal); I46.9 Cardiac arrest, cause unspecified; N17.0 Acute kidney failure with tubular necrosis; I50.43 Acute on chronic combined systolic (congestive) and diastolic (congestive) heart failure; I49.01 Ventricular fibrillation; E43 Unspecified severe protein-calorie malnutrition; R65.10 Systemic inflammatory response syndrome (SIRS) of non-infectious origin without acute organ dysfunction; I42.0 Dilated cardiomyopathy; E87.1 Hypo-osmolality and hyponatremia; Z88.8 Allergy status to other drugs, medicaments and biological substances; M81.0 Age-related osteoporosis without current pathological fracture; G40.909 Epilepsy, unspecified, not intractable, without status epilepticus; Z68.25 Body mass index [BMI] 25.0-25.9, adult; K72.90 Hepatic failure, unspecified without coma; R31.9 Hematuria, unspecified; D69.6 Thrombocytopenia, unspecified; E87.6 Hypokalemia; E83.42 Hypomagnesemia; E83.39 Other disorders of phosphorus metabolism; D64.9 Anemia, unspecified
CPT/HCPCS: 36556; 36600; 82962; 83880; 84439; A4628; J0282; J1642; J1644; J1940; J1956; J2060; J2250; J2270; J2370; J2704; J3475; J3480; J3490; J7030; J7040; Q0092